=== PATIENT | male | born 2005 | race Caucasian/White ===

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

== ENCOUNTER → 2025-10-10 | Outpatient (CLI) | payer OTHER ==
[~2025-10-10] MED LIST changes: +IBUP400 PO
== END ==
LOC: LAB SHORT 15:56 → LAB 15:56
DX: J02.9 Acute pharyngitis, unspecified (principal)
CPT/HCPCS: 87081